=== PATIENT | female | born 1975 | race African-American/Black ===

== ENCOUNTER 2017-10-24 00:41 | Emergency (ER) | payer OTHER ==
[2017-10-24 00:50] VITALS: BMI 27.4
--- NOTE | 2017-10-24 01:01 | DR.GENAD ---
HPI - PCP Primary Care Physician: nfd - Complaint/Symptoms Chief Complaint Doctors Comments: hematuria and flank pain x 2 weeks. She denies nausea or vomitting and has had no fever. 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 - Family History History of Family Medical Conditions: Yes Family Medical History: [place], Coronary Artery Disease, Hypertension - Social History Does patient currently use any type of tobacco product: No Have you used tobacco products in the last 12 months: No Type of Tobacco Use: Cigarettes Does any household member use tobacco: No Alcohol Use: None Do you use any recreational Drugs:: No Lives With: Family Lives Where: Home - infectious screening In the last 2 months have you had wt loss of >10#?: NO Have you had fever, night sweats or hemotysis?: No Have you traveled outside the country in the last 6 months?: No Isolation: Standard ROS - Review of Systems Constitutional: No Symptoms Reported Eyes: No Symptoms Reported ENTM: No Symptoms Reported Respiratoy: No Symptoms Reported Cardiovascular: No Symptoms Reported Gastrointestinal/Abdominal: Other (bilateral flank oain) Genitourinary: Hematuria Neurological: No Symptoms Reported Musculoskeletal: No Symptoms Reported Integumentary: No Symptoms Reported Hematologic/Lymphatic: No Symptoms Reported Endocrine: No Symptoms Reported Psychiatric: No Symptoms Reported All Other Systems: Reviewed and Negative PE - Vital Signs Vitals: Temperature 99.6 F Pulse Rate 141 Respiratory Rate 16 Blood Pressure 131/85 O2 Sat by Pulse Oximetry 98 - General Limitations: No Limitations General Appearance: Alert, In No Apparent Distress - Head Head Exam: Normal Inspection - Eyes Eye exam: Normal Appearance - ENT ENT Exam: Normal Exam - Neck Neck Exam: Normal Inspection - Chest Chest Inspection: Normal Inspection - Respiratory Respiratory Exam: Normal Lung Sounds Bilat - Cardiovascular Cardiovascular Exam: Regular Rate, Normal Rhythm, +S1, +S2 - Abdominal Exam Abdominal Exam: Normal Inspection, Normal Bowel Sounds, Soft - Extremities Extremities Exam: Normal Inspection - Back Back Exam: Normal Inspection, (R) CVA Tenderness, (L) CVA Tenderness - Neurologic Neurological Exam: Alert, Oriented X3 - Psychiatric Psychiatric Exam: Normal Affect, Normal Mood - Skin Skin Exam: Warm, Dry, Intact, Normal Color ROR - Labs Reviewed Result Diagrams: 10/24/17 01:15 10/24/17 01:15 Laboratory: WBC 26.8 X10^3/uL (3.6-10.0) H 10/24/17 01:15 RBC 4.06 X10^6/uL (3.5-5.4) 10/24/17 01:15 Hgb 7.7 g/dL (12.0-16.0) L 10/24/17 01:15 Hct 23.9 % (36.0-47.0) L 10/24/17 01:15 MCV 58.8 fL (80.0-100.0) L 10/24/17 01:15 MCH 18.9 pg (27.0-34.0) L 10/24/17 01:15 MCHC 32.2 g/dL (33.0-35.0) L 10/24/17 01:15 RDW 19.9 % (11.6-16.5) H 10/24/17 01:15 Plt Count 453 X10^3/uL (150.0-450.0) H 10/24/17 01:15 Plt Count Comment Increased (ADEQUATE) A 10/24/17 01:15 MPV 8.6 fL (7.4-11.0) 10/24/17 01:15 Neut % (Auto) 64.4 % (42.0-75.0) 10/24/17 01:15 Lymph % (Auto) 26.7 % (21.0-51.0) 10/24/17 01:15 [place] % (Auto) 7.2 % (0.0-13.0) 10/24/17 01:15 Eos % (Auto) 0.3 % (0.9-2.9) L 10/24/17 01:15 Baso % (Auto) 1.4 % (0.2-1.0) H 10/24/17 01:15 Neut # (Auto) 17.3 x10^3/uL (2.2-4.8) H 10/24/17 01:15 Lymph # (Auto) 7.1 X10^3/uL (1.3-2.9) H 10/24/17 01:15 [place] # (Auto) 1.9 x10^3/uL (0.3-0.8) H 10/24/17 01:15 Eos # (Auto) 0.1 x10^3/uL (0.0-0.2) 10/24/17 01:15 Baso # (Auto) 0.4 X10^3/uL (0.0-0.1) H 10/24/17 01:15 Absolute Nucleated RBC 0.0 /100WBC 10/24/17 01:15 Total Counted 100 10/24/17 01:15 Neutrophils % (Manual) 70 % (39-76) 10/24/17 01:15 Band Neutrophils % 11 % (0-10) H 10/24/17 01:15 Lymphocytes % (Manual) 14 % (13-43) 10/24/17 01:15 Monocytes % (Manual) 4 % (4-9) 10/24/17 01:15 Eosinophils % (Manual) 1 % (0-6) 10/24/17 01:15 Plt Morphology Comment Normal (NORMAL) 10/24/17 01:15 RBC Morphology Abnormal (NORMAL) A 10/24/17 01:15 Hypochromasia 3+ A 10/24/17 01:15 Anisocytosis Slight A 10/24/17 01:15 Microcytosis 3+ A 10/24/17 01:15 Target Cells 1+ A 10/24/17 01:15 Sodium 133 mmol/L (136-145) L 10/24/17 01:15 Corrected Sodium 134 mmol/L (136-145) L 10/24/17 01:15 Potassium 3.3 mmol/L (3.5-5.1) L 10/24/17 01:15 Chloride 96 mmol/L (98-107) L 10/24/17 01:15 Carbon Dioxide 23.9 mmol/L (21-32) 10/24/17 01:15 BUN 32 mg/dL (7-18) H 10/24/17 01:15 Creatinine 1.60 mg/dL (0.55-1.02) H 10/24/17 01:15 Est GFR (MDRD) Af Amer 46 (>60) L 10/24/17 01:15 Est GFR (MDRD) Non-Af 38 (>60) L 10/24/17 01:15 Glucose 150 mg/dL (65-99) H 10/24/17 01:15 Calcium 8.8 mg/dL (8.5-10.1) 10/24/17 01:15 Corrected Calcium 10.1 mg/dL (8.5-10.1) 10/24/17 01:15 Total Bilirubin 0.60 mg/dL (0.2-1.0) 10/24/17 01:15 AST 53 Units/L (15-37) H 10/24/17 01:15 ALT 57 Units/L (12-78) 10/24/17 01:15 Alkaline Phosphatase 251 Units/L (46-116) H 10/24/17 01:15 Total Protein 8.7 g/dL (6.4-8.2) H 10/24/17 01:15 Albumin 2.4 g/dL (3.4-5.0) L 10/24/17 01:15 Globulin 6.3 g/dL (2.5-4.5) H 10/24/17 01:15 Albumin/Globulin Ratio 0.4 Ratio (1.1-2.1) L 10/24/17 01:15 Specimen Type Clean catch urine 10/24/17 01:18 Urine Color Brown (YELLOW) 10/24/17 01:18 Urine Appearance Cloudy (CLEAR) 10/24/17 01:18 Urine pH 5.0 (5.0 - 8.0) 10/24/17 01:18 Ur Specific [place] 1.015 (1.000-1.030) 10/24/17 01:18 Urine Protein 3+ (NEGATIVE) 10/24/17 01:18 Urine Glucose (UA) Negative (NEGATIVE) 10/24/17 01:18 Urine Ketones Negative (NEGATIVE) 10/24/17 01:18 Urine Occult Blood 5+ (NEGATIVE) 10/24/17 01:18 Urine Nitrite Positive (NEGATIVE) 10/24/17 01:18 Urine Bilirubin Negative (NEGATIVE) 10/24/17 01:18 Urine Urobilinogen 1+ (NORMAL) 10/24/17 01:18 Ur Leukocyte Esterase 3+ (NEGATIVE) 10/24/17 01:18 Urine RBC Tntc /HPF (NONE SEEN) 10/24/17 01:18 Urine WBC Tntc /HPF (NONE SEEN) 10/24/17 01:18 Ur Squamous Epith Cells Few /HPF (NEGATIVE) 10/24/17 01:18 Urine Bacteria 3+ /HPF (NEGATIVE) 10/24/17 01:18 Ur Culture Indicated? Yes/culture set up 10/24/17 01:18 - Diagnosis Discharge Problem: Renal colic, bilateral, Hematuria, Hydronephrosis of left kidney, Azotemia, Fibroid uterus - Discharge Plan Disposition: 01 HOME, SELF-CARE Condition: Stable - Follow ups/Referrals Follow ups/Referrals: NFD,None [Primary Care Provider] - 3 days - Instructions Instructions: Renal Colic, Hematuria, Adult
[2017-10-24] MEDS ORDERED: NS 1000 ML 1,000 ML IV ONE (01:04)
[2017-10-24] MEDS ORDERED: TORADOL 30 MG VIAL IVP ONE (01:04)
[2017-10-24] MEDS ORDERED: NS 1000 ML 1,000 ML ONE (01:11)
[2017-10-24] MEDS ORDERED: TORADOL 30 MG VIAL ONE (01:11)
[2017-10-24 01:28] LABS: EOSINOPHILS # (AUTO) 0.1 x10^3/uL (0.0-0.2); HEMOGLOBIN 7.7 g/dL (12.0-16.0)
[2017-10-24 01:36] LABS: BASOPHILS # (AUTO) 0.4 X10^3/uL (0.0-0.1); BASOPHILS % (AUTO) 1.4 % (0.2-1.0); EOSINOPHILS % (AUTO) 0.3 % (0.9-2.9); HEMATOCRIT 23.9 % (36.0-47.0); LYMPHOCYTES # (AUTO) 7.1 X10^3/uL (1.3-2.9); LYMPHOCYTES % (AUTO) 26.7 % (21.0-51.0); MEAN CORPUSCULAR HEMOGLOBIN 18.9 pg (27.0-34.0); MEAN CORPUSCULAR HGB CONC 32.2 g/dL (33.0-35.0); MEAN CORPUSCULAR VOLUME 58.8 fL (80.0-100.0); MEAN PLATELET VOLUME 8.6 fL (7.4-11.0); MONOCYTES # (AUTO) 1.9 x10^3/uL (0.3-0.8); MONOCYTES % (AUTO) 7.2 % (0.0-13.0); NEUTROPHILS # (AUTO) 17.3 x10^3/uL (2.2-4.8); NEUTROPHILS % (AUTO) 64.4 % (42.0-75.0); PLATELET COUNT 453 X10^3/uL (150.0-450.0); RED BLOOD COUNT 4.06 X10^6/uL (3.5-5.4); RED CELL DISTRIBUTION WIDTH 19.9 % (11.6-16.5); WHITE BLOOD COUNT 26.8 X10^3/uL (3.6-10.0)
[2017-10-24 01:37] LABS: BILIRUBIN,URINE NEGATIVE (NEGATIVE); BLOOD/HEMOGLOBIN,URINE 5+ (NEGATIVE); GLUCOSE, URINE NEGATIVE (NEGATIVE); KETONES,URINE NEGATIVE (NEGATIVE); LEUKOCYTE ESTERASE ,URINE 3+ (NEGATIVE); NITRITES,URINE POSITIVE (NEGATIVE); PROTEIN,URINE 3+ (NEGATIVE); UROBILINOGEN,URINE 1+ (NORMAL)
[2017-10-24 01:37] LABS: ALBUMIN 2.4 g/dL (3.4-5.0); CALCIUM 8.8 mg/dL (8.5-10.1); CARBON DIOXIDE 23.9 mmol/L (21-32); COR CA(FOR HYPOALB) 10.1 mg/dL (8.5-10.1); CREATININE 1.6 mg/dL (0.55-1.02); TOTAL PROTEIN 8.7 g/dL (6.4-8.2)
--- NOTE | 2017-10-24 01:37 | CT ---
CT abdomen and pelvis without contrast Indication: Dysuria, hematuria. Comparison: None Technique: CT images of the abdomen and pelvis were obtained without contrast. Automatic exposure con trol was utilized. Findings: No acute skeletal abnormality. The lung bases are clear. Within noncontrast limitations, the liver, gallbladder, spleen, stomach, duodenum, pancreas, and adre nals are unremarkable. There is minimal left-sided hydroureteronephrosis, with perinephric stranding. Rounded low-density lesion within the left lower renal pole is most compatible with a cyst. There is a somewhat linear area of hypoattenuation within the left renal midpole also noted (for example axia l image 29). No radiopaque renal or ureteral stone is identified, although there are several calcifie d phleboliths the lower pelvis, potentially obscuring in distal ureteral stone. No marked thickening or dilatation of the lower GI tract. Normal appendix. The uterus and ovaries are noted. There is a lobular contour deformity along the right side of the uterus, suggestive for a fib roid measuring approximately 3.7 cm. Urinary bladder and rectum are unremarkable. No significant free fluid or adenopathy. Impression: Minimal left hydroureteronephrosis with perinephric stranding. No urinary stone is identified, althou gh there are multiple calcified pelvic phleboliths, potentially obscuring a small distal ureteral sto ne. Perinephric stranding may be reactive, although correlation for superimposed pyelonephritis is recomm ended. Probable left lower pole simple renal cyst with additional area of hypoattenuation in the renal midpo le, possibly additional cyst. This can be further evaluated non emergently with ultrasound, if indica jeremy. Probable uterine fibroid measuring approximately 3.7 cm. Reported By:
[2017-10-24 01:40] LABS: APPEARANCE,URINE CLOUDY (CLEAR); COLOR,URINE BROWN (YELLOW)
[2017-10-24 01:48] LABS: BACTERIA,URINE 3+ /HPF (NEGATIVE); RBC,URINE TNTC /HPF (NONE SEEN); SQUAMOUS EPITHELIAL CELL,UR FEW /HPF (NEGATIVE)
[2017-10-24] MEDS ORDERED: DILAUDID INJ IVP ONE (01:52)
[2017-10-24 01:56] LABS: BAND NEUTROPHILS % 11 % (0-10)
[2017-10-24 01:57] LABS: ANISOCYTOSIS SLIGHT; HYPOCHROMASIA 3+; MICROCYTOSIS 3+; PLATELET MORPHOLOGY COMMENT NORMAL (NORMAL); TARGET CELLS 1+
[2017-10-24] MEDS ORDERED: DILAUDID INJ ONE (02:14)
[2017-10-24 03:00] VITALS: BP 115/69
== END 2017-10-24 02:59 | disposition home or self-care (01) ==
LOC: ER 00:41
DX: N23 Unspecified renal colic (principal); R31.9 Hematuria, unspecified; N13.30 Unspecified hydronephrosis; R79.89 Other specified abnormal findings of blood chemistry; D25.9 Leiomyoma of uterus, unspecified; B96.20 Unspecified Escherichia coli [E. coli] as the cause of diseases classified elsewhere; R10.84 Generalized abdominal pain
CPT/HCPCS: 36415; 74176; 80053; 81001; 85025; 87086; 87088; 87186; 96365; 96374; 96375; 99282; 99283; A4222; J1170; J1885

== ENCOUNTER 2018-03-03 09:26 | Inpatient (IN) ==
[2018-03-03] MEDS ORDERED: NS 1000 ML 1,000 ML ONE (09:50)
[2018-03-03] MEDS ORDERED: NS 1000 ML 1,000 ML IV ONE (09:51)
[2018-03-03] MEDS ORDERED: TORADOL 30 MG VIAL ONE (10:05)
[2018-03-03] MEDS ORDERED: TORADOL 30 MG VIAL IVP ONE (10:08)
[2018-03-03 10:12] LABS: BASOPHILS % (AUTO) 0.1 % (0.2-1.0); EOSINOPHILS % (AUTO) 0.1 % (0.9-2.9); HEMATOCRIT 22.8 % (36.0-47.0); HEMOGLOBIN 7.3 g/dL (12.0-16.0); LYMPHOCYTES # (AUTO) 2.5 X10^3/uL (1.3-2.9); LYMPHOCYTES % (AUTO) 10.8 % (21.0-51.0); MEAN CORPUSCULAR HEMOGLOBIN 18.6 pg (27.0-34.0); MEAN CORPUSCULAR HGB CONC 31.9 g/dL (33.0-35.0); MEAN CORPUSCULAR VOLUME 58.2 fL (80.0-100.0); MEAN PLATELET VOLUME 8.7 fL (7.4-11.0); MONOCYTES # (AUTO) 1.4 x10^3/uL (0.3-0.8); MONOCYTES % (AUTO) 6.3 % (0.0-13.0); NEUTROPHILS # (AUTO) 18.8 x10^3/uL (2.2-4.8); NEUTROPHILS % (AUTO) 82.7 % (42.0-75.0); PLATELET COUNT 449 X10^3/uL (150.0-450.0); RED BLOOD COUNT 3.92 X10^6/uL (3.5-5.4); RED CELL DISTRIBUTION WIDTH 21.3 % (11.6-16.5); WHITE BLOOD COUNT 22.8 X10^3/uL (3.6-10.0)
[2018-03-03 10:20] LABS: CALCIUM 8.6 mg/dL (8.5-10.1); CARBON DIOXIDE 28.5 mmol/L (21-32); CREATININE 1.66 mg/dL (0.55-1.02)
[2018-03-03 10:24] LABS: ALBUMIN 2.8 g/dL (3.4-5.0); COR CA(FOR HYPOALB) 9.6 mg/dL (8.5-10.1); TOTAL PROTEIN 8.6 g/dL (6.4-8.2)
[2018-03-03 10:31] LABS: BAND NEUTROPHILS % 18 % (0-10); PLATELET MORPHOLOGY COMMENT NORMAL (NORMAL)
[2018-03-03 10:32] LABS: ANISOCYTOSIS 1+; HYPOCHROMASIA 3+; MICROCYTOSIS 3+
[2018-03-03] MEDS ORDERED: K-LYTE EFFERVESCENT ONE (11:22)
[2018-03-03] MEDS: K-LYTE EFFERVESCENT PO ONE (11:31)
[2018-03-03] MEDS ORDERED: NS 100 ML IV 100 ML IV ONE (11:46)
[2018-03-03] MEDS: NS 1000 ML 1,000 ML IV SCH ×2 (11:47→20:16)
[2018-03-03 12:32] LABS: BILIRUBIN,URINE 1+ (NEGATIVE); BLOOD/HEMOGLOBIN,URINE 3+ (NEGATIVE); GLUCOSE, URINE NEGATIVE (NEGATIVE); KETONES,URINE 1+ (NEGATIVE); LEUKOCYTE ESTERASE ,URINE 3+ (NEGATIVE); NITRITES,URINE NEGATIVE (NEGATIVE); PROTEIN,URINE 3+ (NEGATIVE); UROBILINOGEN,URINE 4+ (NORMAL)
--- NOTE | 2018-03-03 12:42 | CT ---
CT abdomen and pelvis with contrast Indication: Generalized abdominal and lower back pain Technique: Helical CT images of the abdomen and pelvis were obtained with IV contrast. Reformatted im ages in the coronal and sagittal planes were also generated for review. Comparison: 10/24/2017 Findings: Lung bases are clear. No aggressive osseous lesions are identified. The liver, gallbladder, spleen, pancreas and adrenals are unremarkable. There is heterogenous enhance ment with suggestion for striated nephrograms of both kidneys, concerning for pyelonephritis. Tiny pr obable cysts within the left kidney are also noted. There is bilateral perinephric stranding, greater on the right. There is no left or right hydroureteronephrosis. There is no bowel inflammation or obstruction. The appendix is normal. The uterus and ovaries are pre sent. A probable fibroid within the posterior uterine fundus is noted. There are numerous phleboliths throughout the lower pelvis. The IVC and abdominal aorta are normal. The urinary bladder is collapse d, limiting evaluation. No free air, significant free flowing ascites or lymphadenopathy is identifie d. Impression: Imaging findings suggestive for bilateral pyelonephritis, as above. Clinical as well as lab correlati on with urinalysis recommended. Reported By:
[2018-03-03 12:49] LABS: APPEARANCE,URINE SLIGHTLY HAZY (CLEAR); BACTERIA,URINE 1+ /HPF (NEGATIVE); COLOR,URINE DARK YELLOW (YELLOW); RBC,URINE 0-2 /HPF (NONE SEEN); SQUAMOUS EPITHELIAL CELL,UR RARE /HPF (NEGATIVE)
--- NOTE | 2018-03-03 13:05 | DR.FBACK ---
HPI Time Seen Time seen: 10:10 PCP Primary Care Physician: NFD Complaint Chief Complaint Doctor Comments: Patient presents with complaint of left back pain for 3 days associated with low grade fever. Denies dysuria or problems with BM. She denies trauma. Admits to being seen about six months for same problem. 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 Family History History of Family Medical Conditions: No Family Medical History: [place], Coronary Artery Disease and Hypertension Social History Does patient currently use any type of tobacco product: No Have you used tobacco products in the last 12 months: Yes Type of Tobacco Use: None Does any household member use tobacco: No Alcohol Use: None Do you use any recreational Drugs:: No Lives With: Family Lives Where: Home infectious screening In the last 2 months have you had wt loss of >10#?: NO Have you had fever, night sweats or hemotysis?: No Have you traveled outside the country in the last 6 months?: No Isolation: Standard ROS Review of Systems Constitutional: No Symptoms Reported Neurological: No Symptoms Reported Musculoskeletal: No Symptoms Reported Hematologic/Lymphatic: No Symptoms Reported PE Vitals Vital Signs: Temp Pulse Pulse Pulse Resp BP BP 03/03/18 16:00 97.8 F 83 18 03/03/18 13:54 97.9 F 96 H 18 03/03/18 13:32 98 H 22 92/56 03/03/18 10:56 107 H 22 105/58 03/03/18 10:50 107 H 22 03/03/18 09:29 99.2 F 136 H 20 129/69 10/24/17 02:57 115/69 115/69 BP Pulse Ox 03/03/18 16:00 83/53 99 03/03/18 13:54 101/66 97 03/03/18 13:32 99 03/03/18 10:56 107 H 03/03/18 10:50 99 03/03/18 09:29 100 10/24/17 02:57 General Limitations: No Limitations and Physical Limitation General Appearance: Alert and Anxious; negative In Distress Head Head Exam: Normal Inspection and Atraumatic Eyes Eye exam: Normal Appearance, PERRL and EOMI ENT ENT Exam: Normal Exam and Normal Oropharynx Chest Chest Inspection: Normal Inspection and Symmetric Chest Wall Rise Respiratory Respiratory Exam: Prolonged Expiratory Phase and Respiratory Distress Respiratory Exam: Bilateral: Clear to Auscultation, Bilateral: Decreased Breath Sounds and Bilateral: Dullness on Percussion Cardiovascular Cardiovascular Exam: Regular Rate and Normal Rhythm Abdominal Exam Abdominal Exam: Normal Inspection and Normal Bowel Sounds Abdominal Tenderness: Diffuse Genitourinary External Exam: Female: Deferred : Bimanual Exam (female): Deferred Extremities Extremities Exam: Normal Inspection and Full ROM; negative Calf Tenderness Back Back Exam: (L) CVA Tenderness Neurological Neurological Exam: Alert, Oriented X3 and CN II-XII Intact Psychiatric Psychiatric Exam: Normal Affect and Normal Mood COURSE Consultation Called: 13:00 Consultation Comments: Dr. Bentley agreed to admit for further treatment of pyelonephritis ROR Labs Reviewed Laboratory Results Reviewed?: Yes Result Diagrams: 03/03/18 10:00 03/03/18 19:16 Laboratory: WBC 22.8 X10^3/uL (3.6-10.0) H 03/03/18 10:00 RBC 3.92 X10^6/uL (3.5-5.4) 03/03/18 10:00 Hgb 7.3 g/dL (12.0-16.0) L 03/03/18 10:00 Hct 22.8 % (36.0-47.0) L 03/03/18 10:00 MCV 58.2 fL (80.0-100.0) L 03/03/18 10:00 MCH 18.6 pg (27.0-34.0) L 03/03/18 10:00 MCHC 31.9 g/dL (33.0-35.0) L 03/03/18 10:00 RDW 21.3 % (11.6-16.5) H 03/03/18 10:00 Plt Count 449 X10^3/uL (150.0-450.0) 03/03/18 10:00 Plt Count Comment Adequate (ADEQUATE) 03/03/18 10:00 MPV 8.7 fL (7.4-11.0) 03/03/18 10:00 Neut % (Auto) 82.7 % (42.0-75.0) H 03/03/18 10:00 Lymph % (Auto) 10.8 % (21.0-51.0) L 03/03/18 10:00 [place] % (Auto) 6.3 % (0.0-13.0) 03/03/18 10:00 Eos % (Auto) 0.1 % (0.9-2.9) L 03/03/18 10:00 Baso % (Auto) 0.1 % (0.2-1.0) L 03/03/18 10:00 Neut # (Auto) 18.8 x10^3/uL (2.2-4.8) H 03/03/18 10:00 Lymph # (Auto) 2.5 X10^3/uL (1.3-2.9) 03/03/18 10:00 [place] # (Auto) 1.4 x10^3/uL (0.3-0.8) H 03/03/18 10:00 Eos # (Auto) 0.0 x10^3/uL (0.0-0.2) 03/03/18 10:00 Baso # (Auto) 0.0 X10^3/uL (0.0-0.1) 03/03/18 10:00 Absolute Nucleated RBC 0.0 /100WBC 03/03/18 10:00 Total Counted 100 03/03/18 10:00 Neutrophils % (Manual) 69 % (39-76) 03/03/18 10:00 Band Neutrophils % 18 % (0-10) H 03/03/18 10:00 Lymphocytes % (Manual) 13 % (13-43) 03/03/18 10:00 Plt Morphology Comment Normal (NORMAL) 03/03/18 10:00 RBC Morphology Abnormal (NORMAL) A 03/03/18 10:00 Hypochromasia 3+ A 03/03/18 10:00 Anisocytosis 1+ A 03/03/18 10:00 Microcytosis 3+ A 03/03/18 10:00 Sodium 133 mmol/L (136-145) L 03/03/18 10:00 Corrected Sodium 133 mmol/L (136-145) L 03/03/18 10:00 Potassium 3.4 mmol/L (3.5-5.1) L 03/03/18 19:16 Chloride 95 mmol/L (98-107) L 03/03/18 10:00 Carbon Dioxide 28.5 mmol/L (21-32) 03/03/18 10:00 BUN 12 mg/dL (7-18) 03/03/18 10:00 Creatinine 1.66 mg/dL (0.55-1.02) H 03/03/18 10:00 Est GFR (MDRD) Af Amer 44 (>60) L 03/03/18 10:00 Est GFR (MDRD) Non-Af 36 (>60) L 03/03/18 10:00 Glucose 112 mg/dL (65-99) H 03/03/18 10:00 Lactic Acid 0.7 mmol/L (0.4-2.0) 03/03/18 11:53 Calcium 8.6 mg/dL (8.5-10.1) 03/03/18 10:00 Corrected Calcium 9.6 mg/dL (8.5-10.1) 03/03/18 10:00 Total Bilirubin 0.60 mg/dL (0.2-1.0) 03/03/18 10:00 AST 46 Units/L (15-37) H 03/03/18 10:00 ALT 41 Units/L (12-78) 03/03/18 10:00 Alkaline Phosphatase 151 Units/L (46-116) H 03/03/18 10:00 C-Reactive Protein 350.30 mg/L (0-3.0) H 03/03/18 10:00 Total Protein 8.6 g/dL (6.4-8.2) H 03/03/18 10:00 Albumin 2.8 g/dL (3.4-5.0) L 03/03/18 10:00 Globulin 5.8 g/dL (2.5-4.5) H 03/03/18 10:00 Albumin/Globulin Ratio 0.5 Ratio (1.1-2.1) L 03/03/18 10:00 Specimen Type Catherized urine 03/03/18 12:21 Urine Color Dark yellow (YELLOW) 03/03/18 12:21 Urine Appearance Slightly hazy (CLEAR) 03/03/18 12:21 Urine pH 5.0 (5.0 - 8.0) 03/03/18 12:21 Ur Specific [place] 1.015 (1.000-1.030) 03/03/18 12:21 Urine Protein 3+ (NEGATIVE) 03/03/18 12:21 Urine Glucose (UA) Negative (NEGATIVE) 03/03/18 12:21 Urine Ketones 1+ (NEGATIVE) 03/03/18 12:21 Urine Occult Blood 3+ (NEGATIVE) 03/03/18 12:21 Urine Nitrite Negative (NEGATIVE) 03/03/18 12:21 Urine Bilirubin 1+ (NEGATIVE) 03/03/18 12:21 Urine Urobilinogen 4+ (NORMAL) 03/03/18 12:21 Ur Leukocyte Esterase 3+ (NEGATIVE) 03/03/18 12:21 Urine RBC 0-2 /HPF (NONE SEEN) 03/03/18 12:21 Urine WBC 10-20 /HPF (NONE SEEN) 03/03/18 12:21 Ur Squamous Epith Cells Rare /HPF (NEGATIVE) 03/03/18 12:21 Urine Bacteria 1+ /HPF (NEGATIVE) 03/03/18 12:21 Ur Culture Indicated? Yes/culture set up 03/03/18 12:21 XRAY XRAY Interpreted by: Radiologist XRAY Findings: Bilateral pyelonephritis Procedures Procedure Comments Procedures: Diagnosis Discharge Problem: Pyelonephritis ADDITIONAL NOTES Additional Notes Additional Notes: Patient admitted for further management and treatment
[2018-03-03] MEDS ORDERED: AMPICILLIN VIAL 2 GRAM 2 G in NS 100 ML IV + SPIKE MINIBAG* 100 ML IV SCH (13:15)
[2018-03-03] MEDS ORDERED: NS 100 ML IV + SPIKE MINIBAG* 100 ML IV ONE (13:16)
[2018-03-03] MEDS ORDERED: ROCEPHIN VIAL 1 GRAM ONE (13:17)
[2018-03-03] MEDS ORDERED: ZOFRAN INJ 4 MG VIAL IVP PRN (13:18)
[2018-03-03 16:13] VITALS: BMI 22.8
[2018-03-03] MEDS: AMPICILLIN VIAL 1 GRAM 1 G in NS 100 ML IV + SPIKE MINIBAG* 100 ML IV SCH ×2 (16:22→20:16)
[2018-03-03] MEDS: NORCO 7.5/325 MG TAB PO PRN ×2 (16:23→22:44)
[2018-03-04] MEDS: AMPICILLIN VIAL 1 GRAM 1 G in NS 100 ML IV + SPIKE MINIBAG* 100 ML IV SCH ×4 (02:59→20:15)
[2018-03-04] MEDS: NS 1000 ML 1,000 ML IV SCH ×4 (05:42→21:48)
[2018-03-04] MEDS: NORCO 7.5/325 MG TAB PO PRN ×3 (05:48→19:53)
[2018-03-04 06:02] LABS: BASOPHILS % (AUTO) 0.4 % (0.2-1.0); EOSINOPHILS # (AUTO) 0.1 x10^3/uL (0.0-0.2); EOSINOPHILS % (AUTO) 1.3 % (0.9-2.9); HEMATOCRIT 20.3 % (36.0-47.0); LYMPHOCYTES # (AUTO) 1.8 X10^3/uL (1.3-2.9); LYMPHOCYTES % (AUTO) 19.1 % (21.0-51.0); MEAN CORPUSCULAR HEMOGLOBIN 19.2 pg (27.0-34.0); MEAN CORPUSCULAR HGB CONC 33.1 g/dL (33.0-35.0); MEAN CORPUSCULAR VOLUME 58.2 fL (80.0-100.0); MEAN PLATELET VOLUME 8.8 fL (7.4-11.0); MONOCYTES # (AUTO) 0.5 x10^3/uL (0.3-0.8); MONOCYTES % (AUTO) 5.1 % (0.0-13.0); NEUTROPHILS # (AUTO) 6.9 x10^3/uL (2.2-4.8); NEUTROPHILS % (AUTO) 74.1 % (42.0-75.0); PLATELET COUNT 426 X10^3/uL (150.0-450.0); RED BLOOD COUNT 3.48 X10^6/uL (3.5-5.4); RED CELL DISTRIBUTION WIDTH 21.4 % (11.6-16.5); WHITE BLOOD COUNT 9.4 X10^3/uL (3.6-10.0)
[2018-03-04 06:26] LABS: ALBUMIN 2.2 g/dL (3.4-5.0); CALCIUM 7.8 mg/dL (8.5-10.1); CARBON DIOXIDE 28.8 mmol/L (21-32); COR CA(FOR HYPOALB) 9.2 mg/dL (8.5-10.1); CREATININE 1.29 mg/dL (0.55-1.02); MAGNESIUM 2.1 mg/dL (1.7-2.9)
[2018-03-04 06:37] LABS: HEMOGLOBIN 6.7 g/dL (12.0-16.0)
[2018-03-04 06:44] LABS: BAND NEUTROPHILS % 4 % (0-10)
[2018-03-04 06:45] LABS: ANISOCYTOSIS 1+; BASOPHILS % (MANUAL) 1 % (0-1); HYPOCHROMASIA 3+; MICROCYTOSIS 3+; PLATELET MORPHOLOGY COMMENT NORMAL (NORMAL)
[2018-03-04] MEDS ORDERED: NS 100 ML IV 100 ML with VENOFER 400 MG IV NR ×2 (09:00)
[2018-03-04] MEDS: ROCEPHIN VIAL 2 GRAMS 2 G in NS 100 ML IV + SPIKE MINIBAG* 100 ML IV SCH (09:06)
[2018-03-04] MEDS: K-LYTE EFFERVESCENT PO ONE (11:25)
[2018-03-05] MEDS: NS 1000 ML 1,000 ML IV SCH ×2 (00:30→05:31)
[2018-03-05] MEDS: AMPICILLIN VIAL 1 GRAM 1 G in NS 100 ML IV + SPIKE MINIBAG* 100 ML IV SCH ×2 (02:37→08:29)
[2018-03-05] MEDS: NORCO 7.5/325 MG TAB PO PRN ×2 (02:38→08:29)
[2018-03-05] MEDS: ROCEPHIN VIAL 2 GRAMS 2 G in NS 100 ML IV + SPIKE MINIBAG* 100 ML IV SCH (08:29)
[2018-03-05 12:42] VITALS: BP 120/71
== END 2018-03-05 13:25 | disposition home or self-care (01) | DRG 690 ==
LOC: ER 09:28 → MED/SURG 13:15 → OBS 03-05 13:30
PROVIDERS: ADMIT Obstetrics & Gynecology Obstetrics; ATTEND Obstetrics & Gynecology Obstetrics
DX: D72.828 Other elevated white blood cell count; M54.5 Low back pain; B96.29 Other Escherichia coli [E. coli] as the cause of diseases classified elsewhere; D50.8 Other iron deficiency anemias; R94.4 Abnormal results of kidney function studies; R79.82 Elevated C-reactive protein (CRP); N12 Tubulo-interstitial nephritis, not specified as acute or chronic
CPT/HCPCS: 36415; 71020; 71046; 74177; 80053; 81001; 82607; 82728; 82746; 83540; 83605; 83735; 84132; 84466; 85025; 86140; 87040; 87086; 87088; 87186; 96365; 96367; 96374; 96375; 99283; 99284; A4222; J0290; J0696; J1756; J1885; J7030; J7050; J8499